=== PATIENT | male | born 1965 | race Caucasian/White ===

== ENCOUNTER 2017-01-16 12:25 | Inpatient (IN) | payer OTHER ==
[~2017-01-16] VITALS: Ht 170.2 cm; Wt 70.3 kg
[2017-01-16 14:46] LABS: HEMATOCRIT 46.1 % (38.0-50.0); MCH 30.8 PG (29.0-34.0); MCHC 34.1 G/DL (30.0-36.0); MCV 90.6 FL (86-99); MEAN PLAT.VOLUME 9.1 uM^3 (9.0-12.4); PLATELET COUNT 246 K/uL (156-360); RBC DIS.WIDTH-CV 13.4 % (11.8-14.6); RED BLOOD COUNT 5.09 M/uL (4.00-5.50); WHITE BLOOD COUNT 17.9 K/uL (4.1-10.2)
[2017-01-16 14:53] LABS: CHLORIDE 104 mEq/L (99-109); POTASSIUM 4.1 mEq/L (3.7-5.4); SODIUM 137 mEq/L (136-147)
[2017-01-16 14:55] LABS: GLUCOSE 92 mg/dL (70-99)
[2017-01-16 14:57] LABS: ANION GAP 11 MEQ/L (2-14); TOTAL BILIRUBIN 0.7 mg/dL (0.0-1.0)
[2017-01-16 14:59] LABS: ALKALINE PHOSPHATASE 77 IU/L (3-129); GFR ESTIMATE (CALCULATED) > 59 mL/min/
[2017-01-16 15:00] LABS: UREA NITROGEN (BUN) 9 mg/dL (9-23)
[2017-01-16] MEDS ORDERED: ELAVIL25 MG PO (16:20)
[2017-01-16] MEDS ORDERED: ADVIL200 MG PO (16:21)
[2017-01-16 20:09] VITALS: BP 120/64
[2017-01-16 23:06] VITALS: BP 106/61
[2017-01-17 03:03] VITALS: BP 122/75
[2017-01-17 06:31] LABS: BASOPHIL COUNT 0.1 K/uL (0-0.1); EOSINOPHIL COUNT 0.3 K/uL (0-0.3); HEMATOCRIT 42.1 % (38.0-50.0); IMMATURE GRANULOCYTE (%) 0.3 % (0.0-0.7); INSTRUMENT ABS NEUTROPHIL CT 4.6 K/uL; LYMPHOCYTE COUNT 2.5 K/uL (1.0-2.8); MCH 31.9 PG (29.0-34.0); MCHC 34.2 G/DL (30.0-36.0); MCV 93.3 FL (86-99); MEAN PLAT.VOLUME 9.2 uM^3 (9.0-12.4); MONOCYTE COUNT 1.3 K/uL (0-0.8); NEUTROPHIL (%) 52.2 % (45-76); NEUTROPHIL COUNT 4.6 K/uL (1.8-6.4); PLATELET COUNT 207 K/uL (156-360); RED BLOOD COUNT 4.51 M/uL (4.00-5.50); WHITE BLOOD COUNT 8.7 K/uL (4.1-10.2)
[2017-01-17 07:54] LABS: ALKALINE PHOSPHATASE 63 IU/L (3-129); ANION GAP 13 MEQ/L (2-14); CHLORIDE 104 MEQ/L (99-109); GFR ESTIMATE (CALCULATED) > 59 mL/min/; GLUCOSE 91 mg/dL (70-99); POTASSIUM 4.6 MEQ/L (3.7-5.4); SAMPLE HEMOLYSIS CHECK 1; SAMPLE ICTERIC CHECK 0; SAMPLE LIPEMIA CHECK 0; SODIUM 136 MEQ/L (136-147); TOTAL BILIRUBIN 0.9 MG/DL (0.0-1.0); UREA NITROGEN (BUN) 11 mg/dL (9-23)
[2017-01-17 08:22] VITALS: BP 145/88
[2017-01-17 11:52] VITALS: BP 136/85
[2017-01-17 16:04] VITALS: BP 113/66
[2017-01-17 20:04] VITALS: BP 117/82
[2017-01-17 23:53] VITALS: BP 114/68
[2017-01-18 04:37] VITALS: BP 105/64
[2017-01-18 08:02] VITALS: BP 126/74
[2017-01-18 11:07] VITALS: BP 127/71
[2017-01-18] MEDS ORDERED: ENDOCET 5-3251 EACH PO (12:51)
[2017-01-18 16:12] VITALS: BP 119/73
== END 2017-01-18 21:28 | disposition home or self-care (01) | DRG 200 ==
LOC: EME 12:25 → 3EAST 16:23 → EDOF 16:23 → ENRESERV 16:27 → 3EAST 20:09
PROVIDERS: Nurse Practitioner Family; Surgery
PROC: 0W9930Z Drainage of Right Pleural Cavity with Drainage Device, Percutaneous Approach (ICD-10-PCS; principal; 2017-01-16)
DX: S27.0XXA Traumatic pneumothorax, initial encounter (principal); J98.11 Atelectasis; S22.31XA Fracture of one rib, right side, initial encounter for closed fracture; W11.XXXA Fall on and from ladder, initial encounter; F17.200 Nicotine dependence, unspecified, uncomplicated
CPT/HCPCS: 71010; 71020; 71260; 73030; 80053; 85025; 85027; 94799; 99281; 99285; J1170; J1650; J1885; J2270; J3010; J7040; J7120